=== PATIENT | male | born 1995 | race Caucasian/White ===

== ENCOUNTER 2018-08-06 13:04 | Emergency (ER) | payer BC ==
[~2018-08-06] VITALS: Ht 170.2 cm; Wt 70.3 kg
[2018-08-06] MEDS ORDERED: ONDANSETRON PF 4 MG/2 ML VIAL. ONE (13:44)
[2018-08-06] MEDS ORDERED: IV NORMAL SALINE 1000ML BAG 1,000 ML IV ONE (13:45)
[2018-08-06] MEDS ORDERED: KETOROLAC 15 MG/ML VIAL. IV ONE (13:45)
[2018-08-06] MEDS ORDERED: ONDANSETRON PF 4 MG/2 ML VIAL. IV ONE (13:45)
[2018-08-06] MEDS ORDERED: fentaNYL PF VIAL 100 MCG/2 ML VIAL IV ONE (13:45)
[2018-08-06 13:53] LABS: BASO # 0.1 x10^3/uL (0.0-0.2); BASO % 1 % (0-3); EOS # 0.1 x10^3/uL (0.0-0.7); EOS % 1 % (0-3); HEMATOCRIT 48.1 % (39.0-53.0); HEMOGLOBIN 17.4 g/dL (13.0-17.5); LYMPH # 1.5 x10^3/uL (1.0-4.8); LYMPH % 16 % (24-48); MEAN CORPUSCULAR HEMOGLOBIN 34 pg (25-35); MEAN CORPUSCULAR HGB CONC 36 g/dL (31-37); MEAN CORPUSCULAR VOLUME 94 fL (79-100); MONO # 0.7 x10^3/uL (0.0-1.1); MONO % 8 % (0-9); NEUT # 7.4 x10^3uL (1.8-7.7); NEUT % 76 % (31-73); PLATELET COUNT 228 x10^3/uL (140-400); RED BLOOD COUNT 5.15 x10^6/uL (4.30-5.70); RED CELL DISTRIBUTION WIDTH 13.3 % (11.5-14.5); WHITE BLOOD COUNT 9.7 x10^3/uL (4.0-11.0)
[2018-08-06 14:07] LABS: CALCIUM 9.6 mg/dL (8.5-10.1); CREATININE 0.8 mg/dL (0.7-1.3); GFR 120.9; POTASSIUM 4.1 mmol/L (3.5-5.1)
[2018-08-06 14:12] LABS: ALBUMIN 4.4 g/dL (3.4-5.0); ALBUMIN/GLOBULIN RATIO 1.3 (1.0-1.7); TOTAL BILIRUBIN 0.7 mg/dL (0.2-1.0); TOTAL PROTEIN 7.9 g/dL (6.4-8.2)
--- NOTE | 2018-08-06 14:54 | RAD ---
Examination: TESTICULAR/SCROTUM History: rt testicle pain Comparison/Correlation: None Findings: Scrotal ultrasound exam was performed. Right testicle measures 5.3 cm x 2.3 cm a 2.6 cm. Left testicle measures 4.17 x 3 cm x 2.3 cm. Normal testicular echotexture identified. Normal flow on color and spectral Doppler imaging bilaterally is seen. Valsalva imaging was performed. Left sided varicocele is present. No right-sided varicocele identified. Epididymides are grossly unremarkable. Impression: Left varicocele. No evidence of epididymoorchitis or testicular torsion. Electronically signed by: Luciano Lopez MD (08/06/2018 2:49 PM) [id number]
--- NOTE | 2018-08-06 15:10 | RAD ---
Examination: CT of the abdomen pelvis without contrast HISTORY: History of right-sided flank pain, displaced left pain after bowel movement COMPARISON: None available TECHNIQUE: Axial CT images of the abdomen pelvis were performed without contrast. Coronal and sagittal reformats are performed Exposure: One or more of the following individualized dose reduction techniques were utilized for this examination: 1. Automated exposure control 2. Adjustment of the mA and/or kV according to patient size 3. Use of iterative reconstruction technique FINDINGS: The bibasilar lungs are clear. No evidence of free air identified in the abdomen. The evaluation of the solid organs is limited due to lack of IV contrast. The evaluation of bowel is limited due to lack of oral contrast. The visualized noncontrasted liver, spleen, adrenals grossly appears unremarkable. The gallbladder is mildly distended. The stomach is mildly distended. The visualized pancreas grossly appears unremarkable. The small bowel is nondilated. Appendix is normal. Feces and gas noted in the colon. No evidence of intrarenal collecting system calculi or hydronephrosis identified. L5 spondylolysis. No evidence of lytic bony destructive lesion. IMPRESSION: 1. No evidence of intrarenal collecting system calculi or hydronephrosis. 2. No acute intra-abdominal findings. Electronically signed by: Trevor Nicholson MD (08/06/2018 3:05 PM) [id number]
[2018-08-06 15:17] LABS: BILIRUBIN,URINE NEGATIVE (NEG); CLARITY,URINE CLEAR; COLOR,URINE YELLOW; NITRITE,URINE NEGATIVE (NEG); PROTEIN,URINE NEGATIVE (NEG-TRACE); UROBILINOGEN,URINE 0.2 mg/dL (0.2 mg/dL)
[2018-08-06 15:22] VITALS: BP 108/63
[2018-08-06 15:24] LABS: BACTERIA,URINE 0 /HPF (0-FEW); RBC,URINE OCC /HPF (0-2); WBC,URINE OCC /HPF (0-4)
[2018-08-06] MEDS ORDERED: DICL50TA2 PO (15:36)
--- NOTE | 2018-08-06 15:41 | PHYS DOC ---
Past Medical History Past Medical History: No Pertinent History Past Surgical History: No Surgical History Alcohol Use: Occasionally Drug Use: Marijuana Adult General Chief Complaint Chief Complaint: ABDOMINAL PAIN HPI HPI Patient is a 23 year old M WHO P/W CC OF lower abdominal pain and testicular pain this occurred while he was straining to have a bowel movement. He was straining fairly hard developed sudden onset is hit him out of no where lower dull discomfort described as severe also feeling right testicular pain he was touching his testicle and it was quite sore Review of Systems Review of Systems Constitutional: Denies fever or chills [] Eyes: Denies change in visual acuity, redness, or eye pain [] HENT: Neurologic: Denies headache, focal weakness or sensory changes [] Endocrine: Denies polyuria or polydipsia [] All other systems were reviewed and found to be within normal limits, except as documented in this note. Current Medications Current Medications Current Medications Medications (Trade) Dose Ordered Sig/Ganesh Start Time Stop Time Status Last Admin Dose Admin Fentanyl Citrate (Fentanyl 2ml Vial) 50 mcg 1X ONCE 08/06/18 13:45 08/06/18 13:46 DC 08/06/18 13:51 50 MCG Ketorolac Tromethamine (Toradol 15mg Vial) 15 mg 1X ONCE 08/06/18 13:45 08/06/18 13:46 DC 08/06/18 13:51 15 MG Ondansetron HCl (Zofran) 4 mg STK-MED ONCE 08/06/18 13:44 08/06/18 13:46 DC Sodium Chloride 1,000 ml @ 1,000 mls/hr 1X ONCE 08/06/18 13:45 08/06/18 14:44 DC 08/06/18 13:49 1,000 MLS/HR Allergies Allergies Allergies Coded Allergies Type Severity Reaction Last Updated Verified No Known Drug Allergies 08/06/18 No Physical Exam Physical Exam Constitutional: Well developed, well nourished, no acute distress, non-toxic appearance. [] HENT: Normocephalic, atraumatic, bilateral external ears normal, oropharynx moist, no oral exudates, nose normal. [] Eyes: PERRLA, EOMI, conjunctiva normal, no discharge. [] Neck: Normal range of motion, no tenderness, supple, no stridor. [] Pulmonary: Normal respiratory effort no increased work of breathing no obvious chest wall trauma Abdomen: Bowel sounds normal, soft,SUPRAPUBIC TTP MILD. no masses, no pulsatile masses. [] Skin: Warm, dry, no erythema, no rash. [] : THERE IS MILD TTP NOTED RIGHT TESTICLE. THERE IS CREMASTERIC REFLEX. NO INDURATION Extremities: No tenderness, no cyanosis, no clubbing, ROM intact, no edema. [] Neurologic: Alert and oriented X 3, normal motor function, normal sensory function, no focal deficits noted. [] Psychologic: Affect normal, judgement normal, mood normal. [] Current Patient Data Vital Signs Vital Signs Date Time Temp Pulse Resp B/P (MAP) Pulse Ox O2 Delivery O2 Flow Rate FiO2 08/06/18 13:51 16 99 Room Air 08/06/18 13:15 97.8 78 129/70 (89) 97.8 Lab Values Laboratory Tests Test 08/06/18 13:40 08/06/18 15:00 White Blood Count 9.7 x10^3/uL (4.0-11.0) Red Blood Count 5.15 x10^6/uL (4.30-5.70) Hemoglobin 17.4 g/dL (13.0-17.5) Hematocrit 48.1 % (39.0-53.0) Mean Corpuscular Volume 94 fL (79-100) Mean Corpuscular Hemoglobin 34 pg (25-35) Mean Corpuscular Hemoglobin Concent 36 g/dL (31-37) Red Cell Distribution Width 13.3 % (11.5-14.5) Platelet Count 228 x10^3/uL (140-400) Neutrophils (%) (Auto) 76 % (31-73) H Lymphocytes (%) (Auto) 16 % (24-48) L Monocytes (%) (Auto) 8 % (0-9) Eosinophils (%) (Auto) 1 % (0-3) Basophils (%) (Auto) 1 % (0-3) Neutrophils # (Auto) 7.4 x10^3uL (1.8-7.7) Lymphocytes # (Auto) 1.5 x10^3/uL (1.0-4.8) Monocytes # (Auto) 0.7 x10^3/uL (0.0-1.1) Eosinophils # (Auto) 0.1 x10^3/uL (0.0-0.7) Basophils # (Auto) 0.1 x10^3/uL (0.0-0.2) Sodium Level 139 mmol/L (136-145) Potassium Level 4.1 mmol/L (3.5-5.1) Chloride Level 102 mmol/L (98-107) Carbon Dioxide Level 28 mmol/L (21-32) Anion Gap 9 (6-14) Blood Urea Nitrogen 16 mg/dL (8-26) Creatinine 0.8 mg/dL (0.7-1.3) Estimated GFR (Cockcroft-Gault) 120.9 BUN/Creatinine Ratio 20 (6-20) Glucose Level 90 mg/dL (70-99) Calcium Level 9.6 mg/dL (8.5-10.1) Total Bilirubin 0.7 mg/dL (0.2-1.0) Aspartate Amino Transferase (AST) 19 U/L (15-37) Alanine Aminotransferase (ALT) 34 U/L (16-63) Alkaline Phosphatase 42 U/L (46-116) L Total Protein 7.9 g/dL (6.4-8.2) Albumin 4.4 g/dL (3.4-5.0) Albumin/Globulin Ratio 1.3 (1.0-1.7) Urine Collection Type Unknown Urine Color Yellow Urine Clarity Clear Urine pH 7.0 Urine Specific [place] 1.025 Urine Protein Negative mg/dL (NEG-TRACE) Urine Glucose (UA) Negative mg/dL (NEG) Urine Ketones (Stick) Trace mg/dL (NEG) Urine Blood Negative (NEG) Urine Nitrite Negative (NEG) Urine Bilirubin Negative (NEG) Urine Urobilinogen Dipstick 0.2 mg/dL (0.2 mg/dL) Urine Leukocyte Esterase Negative (NEG) Urine RBC Occ /HPF (0-2) Urine WBC Occ /HPF (0-4) Urine Bacteria 0 /HPF (0-FEW) Urine Mucus Marked /LPF Laboratory Tests 08/06/18 13:40 Laboratory Tests 08/06/18 13:40 EKG EKG [] Radiology/Procedures Radiology/Procedures [] Impressions: IMPRESSION: 1. No evidence of intrarenal collecting system calculi or hydronephrosis. 2. No acute intra-abdominal findings. Electronically signed by: Trevor Nicholson MD (08/06/2018 3:05 PM) [id number] DICTATED and SIGNED BY: TREVOR NICHOLSON MD DATE: 08/06/18 1458 Right testicle measures 5.3 cm x 2.3 cm a 2.6 cm. Left testicle measures 4.17 x 3 cm x 2.3 cm. Normal testicular echotexture identified. Normal flow on color and spectral Doppler imaging bilaterally is seen. Valsalva imaging was performed. Left sided varicocele is present. No right-sided varicocele identified. Epididymides are grossly unremarkable. Impression: Left varicocele. No evidence of epididymoorchitis or testicular torsion. Electronically signed by: Luciano Eldridge MD (08/06/2018 2:49 PM) [id number] DICTATED and SIGNED BY: LUCIANO ELDRIDGE MD DATE: 08/06/18 1448 Course & Med Decision Making Course & Med Decision Making Pertinent Labs and Imaging studies reviewed. (See chart for details) []21-year-old male present with a essentially lower abdominal discomfort and testicular pain after straining to have a bowel movement it was fairly sudden onset he was in distress we did CT scan no kidney stone we did testicular ultrasound normal no torsion He is feeling better in the emergency room with the above treatment. Suspect he had some sort of a ligamentous strain of the groin area he was given anti- inflammatory medication and return precautions were discussed in detail. Urinalysis was essentially negative I doubt infection Dragon Disclaimer Dragon Disclaimer This electronic medical record was generated, in whole or in part, using a voice recognition dictation system. Departure Departure Impression: Primary Impression: Abdominal pain Disposition: HOME, SELF-CARE Condition: STABLE Patient Instructions: Abdominal Pain (Nonspecific) Scripts Diclofenac Potassium (DICLOFENAC POTASSIUM) 50 Mg Tablet 1 TAB PO PRN TID, #15 TAB Prov: DAVONTE HOWELL MD 08/06/18 DAVONTE HOWELL MD Aug 06, 2018 15:41
== END 2018-08-06 15:51 | disposition home or self-care (01) ==
LOC: ER 13:04
DX: R10.30 Lower abdominal pain, unspecified (principal); N50.811 Right testicular pain; I86.1 Scrotal varices
CPT/HCPCS: 36415; 74176; 76870; 80053; 81001; 85025; 96374; 96375; 99284; J1885; J2405; J3010; J7030